=== PATIENT | male | born 1965 | race Caucasian/White ===

== ENCOUNTER 2023-07-01 05:46 | Observation (INO) ==
[2023-07-01] MEDS ORDERED: ceFAZolin 2 GM in NS PREMIX 2 GM/100 ML BAG IVPB ONE (06:03)
[2023-07-01 06:34] LABS: Rapid COVID-19 Molecular Undetected (Undetected)
[2023-07-01] MEDS ORDERED: ROPIVACAINE 5 MG/ML 30 ML BTL (0.5%) ONE ×2 (06:58→10:36)
[2023-07-01 07:11] LABS: INR 0.99 (0.83-1.13)
[2023-07-01] MEDS ORDERED: Lidocaine 2% PF 5 ML VIAL ONE (07:15)
[2023-07-01] MEDS ORDERED: Midazolam 2 mg/2 ml VIAL 1 mg/ml 2 ml VIAL (2 mg) ONE (07:15)
[2023-07-01] MEDS ORDERED: fentaNYL 100 mcg/2 ml 50 MCG/ML VIAL ONE (07:15)
[2023-07-01] MEDS ORDERED: Magnesium Hydroxide LIQ 30 ML UDC PO PRN (07:23)
[2023-07-01] MEDS ORDERED: Lactulose 30 ml UDC PO PRN (07:23)
[2023-07-01] MEDS ORDERED: Ondansetron ODT 4 mg TAB 4 MG TAB PO PRN (07:23)
[2023-07-01] MEDS ORDERED: Ondansetron 4 mg VIAL 2 MG/ML 2 ml VIAL IV PRN (07:23)
[2023-07-01] MEDS ORDERED: Morphine 2 MG/ML SYRINGE IV PRN (07:23)
[2023-07-01] MEDS ORDERED: Phenylephrine IV 10 MG/ML 1 ml VIAL ONE (08:06)
[2023-07-01] MEDS ORDERED: Dexamethasone IV 4 MG/ML VIAL 1 ml VIAL ONE (08:38)
[2023-07-01] MEDS ORDERED: Ondansetron 4 mg VIAL 2 MG/ML 2 ml VIAL ONE (08:38)
[2023-07-01] MEDS ORDERED: Glycopyrrolate IV 0.2 MG/ML 1 ML VIAL ONE (08:38)
[2023-07-01] MEDS ORDERED: Scopolamine 1 mg/72hr PATCH ONE (08:43)
[2023-07-01] MEDS ORDERED: Naloxone 0.4 mg VIAL 0.4 mg/ml 1 ml VIAL IV PRN (09:01)
[2023-07-01] MEDS ORDERED: HYDROmorphone 1 MG/1 ML SYRINGE IV PRN (09:01)
[2023-07-01] MEDS ORDERED: Levalbuterol 0.63MG/3ML NEB UNIT OF USE INH PRN (09:01)
[2023-07-01] MEDS ORDERED: Acetaminophen IV 1 GM/100ML 1,000 MG/100 ML BAG IV ONE (12:07)
[2023-07-01] MEDS: Acetaminophen IV 1 GM/100ML 1,000 MG/100 ML BAG IV ONE (12:10)
[2023-07-01] MEDS: Lactated Ringers 1000 ml BAG 1,000 ML IV SCH ×2 (13:13→13:19)
[2023-07-01] MEDS: Buffered Lidocaine 1% SYRIN 1 ml INTRADERM ONE (13:19)
[2023-07-01] MEDS: Magnesium Hydroxide LIQ 30 ML UDC PO SCH (13:19)
[2023-07-01] MEDS: Vitamin THERAPEUTIC TAB PO SCH (16:38)
[2023-07-01] MEDS: ceFAZolin 1 GM ADVAN 1 GM in NS 0.9% 50 ML 50 ML IVPB SCH (16:40)
[2023-07-01 18:13] VITALS: BP 115/70
== END 2023-07-01 19:05 | disposition home or self-care (01) ==
LOC: OR 05:46 → SSU 05:46 → EDSTATUS 07:30
PROVIDERS: ADMIT Orthopaedic Surgery Adult Reconstructive Orthopaedic Surgery; ATTEND Orthopaedic Surgery Adult Reconstructive Orthopaedic Surgery